=== PATIENT | female | born 1935 | race Caucasian/White ===

== ENCOUNTER 2019-07-25 11:00 | Emergency (ER) | payer MEDICARE, OTHER ==
[2019-07-25 11:34] LABS: RBC Distribution Width 13.7 % (11.5-14.5)
[2019-07-25 11:35] LABS: #Basophils 0.1 thou/uL (0.0-0.2); #Lymphocytes 0.9 thou/uL (1.20-3.40); #Monocytes 0.4 thou/uL (0.11-0.59); #Neutrophils 6.7 thou/uL (1.40-6.50); %Basophils 0.8 % (0.0-1.0); %Neutrophils 83.3 % (42.0-75.0); Mean Corpuscular HGB CONC 32.4 g/dL (32.0-36.0); Mean Corpuscular Hemoglobin 29.8 pg (27.0-31.0); Mean Corpuscular Volume 91.8 fL (78.0-98.0); Mean Platelet Volume 6.5 fL (7.4-10.4); Platelet Count 241 thou/uL (130-400); Red Blood Cell (RBC) Count 1.67 mill/uL (4.20-5.40)
[2019-07-25 11:44] LABS: ALT (SGPT) 13 U/L (8-55); AST (SGOT) 19 U/L (5-34); Albumin 3.7 g/dL (3.4-4.8); Alkaline Phosphatase 54 U/L (40-150); Anion Gap 13 mmol/L (10-20); BUN (Urea Nitrogen) 26 mg/dL (9.8-20.1); Bilirubin, Total 0.3 mg/dL (0.2-1.2); Calc. Creatinine Clearance 0 mL/min (70-130); Calcium 8.4 mg/dL (7.8-10.44); Carbon Dioxide 19 mmol/L (23-31); Chloride 112 mmol/L (98-107); Estimated GFR-MDRD 69; Globulin 2.3 g/dL (2.4-3.5); Glucose 154 mg/dL (83-110); Potassium 3.3 mmol/L (3.5-5.1); Sodium 141 mmol/L (136-145)
== END 2019-07-25 12:39 | disposition short-term general hospital (02) ==
LOC: BURERS 11:00
DX: D64.9 Anemia, unspecified (principal)
CPT/HCPCS: 36415; 80053; 85025; 96360